=== PATIENT | male | born 1975 | race Caucasian/White ===

== ENCOUNTER 2018-03-01 15:30 | Inpatient (IN) | payer BC ==
[~2018-03-01] VITALS: Ht 190.5 cm; Wt 150.2 kg
[2018-03-01 16:14] LABS: BASOPHILS % (AUTO) 0.9 % (0.0-5.0); EOSINOPHILS % (AUTO) 2.8 % (0.0-8.0); HEMATOCRIT 48.2 % (42-54); LYMPHOCYTES % (AUTO) 29.1 % (21.0-51.0); MEAN CORPUSCULAR HEMOGLOBIN 31.3 pg (27.0-33.0); MEAN CORPUSCULAR HGB CONC 34.7 g/dL (32.0-36.0); MEAN CORPUSCULAR VOLUME 90.2 fL (79-99); MONOCYTES % (AUTO) 8.8 % (3.0-13.0); NEUTROPHILS % (AUTO) 58.4 % (40.0-77.0); PLATELET COUNT (AUTO) 149 K/uL (130-400); RED BLOOD CELL COUNT(AUTO) 5.34 MIL/uL (4.50-6.20); RED CELL DISTRIBUTION WIDTH 13.4 % (11.0-15.5); WHITE BLOOD COUNT (AUTO) 5.6 K/uL (4.8-10.8)
[2018-03-01 16:15] VITALS: BP 147/81
[2018-03-01 16:16] LABS: APPEARANCE,URINE Clear (CLEAR); BILIRUBIN,URINE Negative (NEGATIVE); COLOR,URINE Yellow (YELLOW); GLUCOSE, URINE (UA) TRACE mg/dL (NEGATIVE); KETONES,URINE Negative (NEGATIVE); LEUKOCYTE ESTERASE ,URINE Negative (NEGATIVE); NITRATE,URINE Negative (NEGATIVE); OCCULT BLOOD,URINE Negative (NEGATIVE); PH,URINE 6.5 (5.0-8.0); PROTEIN,URINE Negative (NEGATIVE); UROBILINOGEN,URINE 0.2 mg/dL (0.2-1.0)
[2018-03-01 16:26] LABS: INR 1.07 (0.85-1.15); PARTIAL THROMBOPLASTIN TIME 29.2 SEC (26.3-35.5); PROTHROMBIN TIME 11.2 SEC (9.6-11.6)
[2018-03-01 16:30] LABS: BACTERIA,URINE Rare /HPF (None Seen); RBC,URINE 0-1 /HPF (0-1); SQUAMOUS EPITHELIAL CELL,UR Rare /HPF (0-2); WBC,URINE 0-1 /HPF (0-1)
[2018-03-01] MEDS ORDERED: LISI1TAB9 PO (17:07)
[2018-03-01] MEDS ORDERED: TESTOSTERONE IM (17:07)
[2018-03-01] MEDS ORDERED: METF500T6 PO (17:07)
[2018-03-05] VITALS (20 sets, daily range): BP systolic 106–143; BP diastolic 45–81
[2018-03-05] MEDS: CLINDAMYCIN 900 MG/D5% WATER 50 ML IV SCH ×2 (07:00→10:16)
[2018-03-05] MEDS ORDERED: SODIUM CHLORIDE 0.9% 1000ML 1,000 ML IV ONE (08:04)
[2018-03-05] MEDS ORDERED: CEFAZOLIN SODIUM 1 GM VIAL ONE (08:25)
[2018-03-05] MEDS ORDERED: BUPIVACAINE/PF 0.25% 30ML VIAL IJ ONE (08:25)
[2018-03-05] MEDS ORDERED: TRANEXAMIC ACID 1000MG/10ML IV ONE (08:25)
[2018-03-05] MEDS ORDERED: EPINEPHRINE 1 MG/ML AMPULE ONE (08:25)
[2018-03-05] MEDS ORDERED: CELECOXIB 200 MG CAP ONE (08:27)
[2018-03-05] MEDS ORDERED: ACETAMINOPHEN EXTRA STRENGTH 500 MG TABLET ONE (08:27)
[2018-03-05] MEDS ORDERED: KETOROLAC TROMETHAMINE 15MG/ML ONE (08:27)
[2018-03-05] MEDS ORDERED: OXYCODONE HCL 10 MG TAB.SR.12H PO ONE (08:28)
[2018-03-05] MEDS ORDERED: CLINDAMYCIN PHOSPHATE 150 MG/ML 6ML VIAL ONE (08:47)
[2018-03-05] MEDS ORDERED: MIDAZOLAM HCL 1 MG/ML 2ML VIAL ONE (09:45)
[2018-03-05] MEDS ORDERED: FENTANYL CITRATE PF 50 MCG/1 ML 5ML AMP IV ONE (09:45)
[2018-03-05] MEDS ORDERED: PROPOFOL 10 MG/ML 20ML VIAL IV ONE ×2 (09:45→12:34)
[2018-03-05] MEDS ORDERED: GLYCOPYRROLATE 0.2 MG/ML 5 ML VIAL ONE ×3 (09:54→10:20)
[2018-03-05] MEDS ORDERED: NEOSTIGMINE 5MG/5ML SYR IV ONE (09:54)
[2018-03-05] MEDS ORDERED: ROPIVACAINE 0.5% 5MG/ML 30ML IJ ONE (09:54)
[2018-03-05] MEDS ORDERED: SUCCINYLCHOLINE CHLORIDE 20 MG/ML 10 ML VIAL ONE (09:55)
[2018-03-05] MEDS ORDERED: ROCURONIUM BROMIDE 10MG/1ML 5ML VL ONE (10:12)
[2018-03-05] MEDS ORDERED: ONDANSETRON HCL MDV 20ML 2 MG/ML VIAL ONE (10:12)
[2018-03-05] MEDS ORDERED: LIDOCAINE PF 2% 5ML ABBOJECT ONE (10:12)
[2018-03-05] MEDS ORDERED: NEOSTIGMINE METHYLSULFATE 1MG/ML IV ONE (10:12)
[2018-03-05] MEDS ORDERED: CLINDAMYCIN PHOSPHATE 150 MG/ML 6ML VIAL IJ ONE (10:33)
[2018-03-05] MEDS ORDERED: FENTANYL CITRATE PF 50 MCG/1 ML 2ML VIAL ONE ×2 (12:18→12:31)
[2018-03-05] MEDS ORDERED: LIDOCAINE HCL-MPF 1% 2ML VIAL IVP PRN (12:30)
[2018-03-05] MEDS ORDERED: OXYCODONE HCL 5 MG TAB PO PRN (12:30)
[2018-03-05] MEDS ORDERED: FERROUS FUMARATE 324 MG TABLET PO PRN (12:30)
[2018-03-05] MEDS ORDERED: CALCIUM CARBONATE 500 MG TABLET PO PRN (12:30)
[2018-03-05] MEDS ORDERED: POTASSIUM CHLORIDE 20MEQ/100ML 100 ML IV PRN (12:30)
[2018-03-05] MEDS ORDERED: TRAMADOL HCL 50 MG TABLET PO PRN (12:30)
[2018-03-05] MEDS: ACETAMINOPHEN EXTRA STRENGTH 500 MG TABLET PO SCH ×2 (12:30→21:32)
[2018-03-05] MEDS ORDERED: TEMAZEPAM 15 MG CAPSULE PO PRN (12:30)
[2018-03-05] MEDS ORDERED: POTASSIUM CHLORIDE 10% ELIXIR 20 MEQ/15 ML UDCUP PO PRN (12:30)
[2018-03-05] MEDS ORDERED: DiphenhydrAMINE HCL 50 MG/ML VIAL IVP PRN (12:30)
[2018-03-05] MEDS ORDERED: ONDANSETRON HCL 4 MG/2 ML VIAL IVP PRN (12:30)
[2018-03-05] MEDS ORDERED: MEPERIDINE-PF 50 MG/ML SYG ONE ×2 (13:02→13:20)
[2018-03-05] MEDS ORDERED: PROMETHAZINE HCL 25 MG/ML 1ML AMPULE IM ONE (13:02)
[2018-03-05] MEDS: SODIUM CHLORIDE 0.9% 1000ML 1,000 ML IV SCH ×2 (14:06→22:48)
[2018-03-05] MEDS: KETOROLAC TROMETHAMINE 15MG/ML IV PRN (14:52)
[2018-03-05] MEDS: INSULIN HUMULIN R 100 UNIT/ML 3ML SQ SCH ×2 (16:30→21:37)
[2018-03-05] MEDS: CLINDAMYCIN 900 MG/D5% WATER 50 ML IVPB SCH (17:16)
[2018-03-05] MEDS: OXYCODONE HCL 5 MG TAB PO PRN ×2 (17:16→22:48)
[2018-03-05] MEDS: PREGABALIN 25 MG CAP PO SCH (21:29)
[2018-03-05] MEDS: CELECOXIB 200 MG CAP PO SCH (21:29)
[2018-03-05] MEDS: APIXABAN 2.5 MG TABLET PO SCH (21:32)
[2018-03-05] MEDS: FAMOTIDINE 20MG TAB 20 MG TAB PO SCH (21:33)
[2018-03-06] VITALS: BP 119/72
[2018-03-06] MEDS: CLINDAMYCIN 900 MG/D5% WATER 50 ML IVPB SCH (01:49)
[2018-03-06] MEDS: KETOROLAC TROMETHAMINE 15MG/ML IV PRN ×2 (02:29→11:45)
[2018-03-06 04:00] VITALS: BP 110/70
[2018-03-06] MEDS: ACETAMINOPHEN EXTRA STRENGTH 500 MG TABLET PO SCH ×2 (04:32→12:24)
[2018-03-06 05:34] LABS: HEMATOCRIT 38.4 % (42-54); MEAN CORPUSCULAR HGB CONC 34.8 g/dL (32.0-36.0); MEAN CORPUSCULAR VOLUME 91.7 fL (79-99); PLATELET COUNT (AUTO) 124 K/uL (130-400); RED BLOOD CELL COUNT(AUTO) 4.18 MIL/uL (4.50-6.20); RED CELL DISTRIBUTION WIDTH 13.4 % (11.0-15.5); WHITE BLOOD COUNT (AUTO) 8.2 K/uL (4.8-10.8)
[2018-03-06] MEDS: INSULIN HUMULIN R 100 UNIT/ML 3ML SQ SCH ×3 (05:56→16:09)
[2018-03-06 06:02] LABS: CREATININE 1.1 mg/dL (0.5-1.5); POTASSIUM 3.6 mmol/L (3.5-5.1)
[2018-03-06] MEDS: POTASSIUM CHLORIDE 20 MEQ ERTAB PO PRN ×2 (06:32→08:31)
[2018-03-06] MEDS ORDERED: PHARMACY COMMUNICATION MISC SCH (07:30)
[2018-03-06] MEDS ORDERED: METFORMIN HCL 500 MG TABLET PO SCH ×2 (07:30→16:30)
[2018-03-06 07:55] VITALS: BP 120/60
[2018-03-06] MEDS: CELECOXIB 200 MG CAP PO SCH (08:29)
[2018-03-06] MEDS: FAMOTIDINE 20MG TAB 20 MG TAB PO SCH (08:29)
[2018-03-06] MEDS: OXYCODONE HCL 5 MG TAB PO PRN ×3 (08:30→16:38)
[2018-03-06] MEDS: PREGABALIN 25 MG CAP PO SCH (08:30)
[2018-03-06] MEDS: APIXABAN 2.5 MG TABLET PO SCH (08:30)
[2018-03-06] MEDS ORDERED: HYDROCHLOROTHIAZIDE 25 MG TABLET PO SCH (09:00)
[2018-03-06] MEDS ORDERED: TAMSULOSIN HCL 0.4 MG CAP.ER.24H PO SCH (09:00)
[2018-03-06] MEDS ORDERED: POLYETHYLENE GLYCOL 3350 17 GM POWD.PACK PO SCH (09:00)
[2018-03-06] MEDS ORDERED: LISINOPRIL 10 MG TABLET PO SCH (09:00)
[2018-03-06 11:12] VITALS: BP 140/79
[2018-03-06 15:59] VITALS: BP 138/68
[2018-03-08] MEDS ORDERED: BISACODYL 10 MG SUPP.RECT RC PRN (12:30)
[2018-03-19] MEDS ORDERED: TESTOSTERONE 1 MG IM SCH (09:00)
== END 2018-03-06 19:00 | DRG 470 ==
LOC: EDSTATUS 03-02 15:30 → DAHIP 03-05 07:29 → 4AH 03-05 13:52
PROVIDERS: ADMIT Orthopaedic Surgery; ATTEND Orthopaedic Surgery
PROC: 0SRD0J9 Replacement of Left Knee Joint with Synthetic Substitute, Cemented, Open Approach (ICD-10-PCS; principal; 2018-03-05 09:47)
DX: M17.32 Unilateral post-traumatic osteoarthritis, left knee (principal); E11.9 Type 2 diabetes mellitus without complications; G89.29 Other chronic pain; I10 Essential (primary) hypertension; Z79.84 Long term (current) use of oral hypoglycemic drugs; Z79.899 Other long term (current) drug therapy; Z86.718 Personal history of other venous thrombosis and embolism; Z83.3 Family history of diabetes mellitus; Z82.49 Family history of ischemic heart disease and other diseases of the circulatory system; Z80.9 Family history of malignant neoplasm, unspecified; Z88.8 Allergy status to other drugs, medicaments and biological substances
CPT/HCPCS: 36415; 80048; 81001; 82948; 85025; 85027; 85610; 85730; 88305; 88311; 96374; J0171; J0330; J0690; J1815; J1885; J2001; J2175; J2250; J2550; J2704; J2710; J2795; J3010; J3490; J7030

== ENCOUNTER 2018-12-16 01:41 | Emergency (ER) | payer BC ==
[~2018-12-16 01:41] MED LIST: LISI1TAB9 PO; METF-444 PO; TESTOSTERONE IM
[2018-12-16] MEDS ORDERED: ONDANSETRON HCL 4 MG/2 ML VIAL ONE (02:30)
[2018-12-16] MEDS ORDERED: MORPHINE SULFATE 2 MG/ML 1ML SYG ONE (02:31)
[2018-12-16 02:36] LABS: BASOPHILS % (AUTO) 0.5 % (0.0-5.0); EOSINOPHILS % (AUTO) 2.5 % (0.0-8.0); HEMATOCRIT 37.6 % (42-54); LYMPHOCYTES % (AUTO) 11.7 % (21.0-51.0); MEAN CORPUSCULAR HEMOGLOBIN 29.6 pg (27.0-33.0); MEAN CORPUSCULAR HGB CONC 34.2 g/dL (32.0-36.0); MEAN CORPUSCULAR VOLUME 86.5 fL (79-99); MONOCYTES % (AUTO) 8.5 % (3.0-13.0); NEUTROPHILS % (AUTO) 76.8 % (40.0-77.0); PLATELET COUNT (AUTO) 254 K/uL (130-400); RED BLOOD CELL COUNT(AUTO) 4.34 MIL/uL (4.50-6.20); RED CELL DISTRIBUTION WIDTH 14.5 % (11.0-15.5); WHITE BLOOD COUNT (AUTO) 9.6 K/uL (4.8-10.8)
[2018-12-16 02:46] LABS: CREATININE 1.1 mg/dL (0.5-1.5); POTASSIUM 3.7 mmol/L (3.5-5.1)
[2018-12-16 02:51] LABS: ALBUMIN 3.3 g/dL (3.5-5.0); BILIRUBIN,TOTAL 0.4 mg/dL (0.2-1.0); TOTAL PROTEIN, SERUM 7.1 g/dL (6.0-8.3)
[2018-12-16 05:00] LABS: BF LYMPHOCYTE 6 %; BF MONOCYTE 5 %
[2018-12-16 05:09] LABS: APPEARANCE BODY FLUID BLOODY (CLEAR); COLOR,BODY FLUID RED (LT YELLOW); SPECIMENTYPE,BODY FLUID ASPIRATE; TOTAL VOLUME,BODY FLUID 6000 mL
[2018-12-16 05:10] LABS: BODY FLUID WBC 10600 /cu. mm.
[2018-12-16] MEDS ORDERED: HYDROCODONE/ACETAMINOPHEN 10/325 MG TAB ONE (05:17)
[2018-12-16 05:24] LABS: BODY FLUID RBC 380000 /cu. mm.
[2018-12-18] MEDS ORDERED: LISI1TAB9 PO (13:59)
[2018-12-18] MEDS ORDERED: TESTOSTERON IM (13:59)
[2018-12-18] MEDS ORDERED: METF-444 PO ×2 (13:59)
[2018-12-19] MEDS ORDERED: HYDR-4060 PO (11:33)
[2018-12-21] MEDS ORDERED: HYDR-4457 PO (16:04)
[2018-12-21] MEDS ORDERED: ASPI-1012 PO (16:04)
== END 2018-12-16 05:31 | disposition home or self-care (01) ==
LOC: EDH 01:41
DX: M25.462 Effusion, left knee (principal); E11.9 Type 2 diabetes mellitus without complications; I10 Essential (primary) hypertension; Z88.1 Allergy status to other antibiotic agents
CPT/HCPCS: 20610; 36415; 73562; 80053; 85025; 85651; 86140; 87071; 87077; 87186; 87205; 89051; 96374; 96375; 99285; J2405

== ENCOUNTER 2018-12-19 10:23 | Inpatient (IN) | payer BC | END 2018-12-21 19:11 | disposition home health service (06) | LOC: DAHIP 10:23 → 4AH 22:18 | PROC: 0SPD0JZ Removal of Synthetic Substitute from Left Knee Joint, Open Approach (ICD-10-PCS; principal; 2018-12-19 18:45) | PROC: 0SHD08Z Insertion of Spacer into Left Knee Joint, Open Approach (ICD-10-PCS; 2018-12-19 18:45) | DX: T84.54XA Infection and inflammatory reaction due to internal left knee prosthesis, initial encounter (principal); E66.01 Morbid (severe) obesity due to excess calories; E11.9 Type 2 diabetes mellitus without complications; I10 Essential (primary) hypertension; Z72.0 Tobacco use ==

== ENCOUNTER 2019-01-25 15:00 | Inpatient (IN) | payer BC ==
[~2019-01-25] VITALS: Ht 188 cm; Wt 144.7 kg
[2019-01-25 10:34] LABS: BASOPHILS % (AUTO) 1.1 % (0.0-5.0); EOSINOPHILS % (AUTO) 5.9 % (0.0-8.0); HEMATOCRIT 43.2 % (42-54); LYMPHOCYTES % (AUTO) 25.2 % (21.0-51.0); MEAN CORPUSCULAR HEMOGLOBIN 28.7 pg (27.0-33.0); MEAN CORPUSCULAR HGB CONC 33.1 g/dL (32.0-36.0); MEAN CORPUSCULAR VOLUME 86.7 fL (79-99); MONOCYTES % (AUTO) 7.1 % (3.0-13.0); NEUTROPHILS % (AUTO) 60.7 % (40.0-77.0); PLATELET COUNT (AUTO) 214 K/uL (130-400); RED BLOOD CELL COUNT(AUTO) 4.98 MIL/uL (4.50-6.20); RED CELL DISTRIBUTION WIDTH 16.8 % (11.0-15.5); WHITE BLOOD COUNT (AUTO) 5.6 K/uL (4.8-10.8)
[2019-01-25 10:36] VITALS: BP 156/76
[2019-01-25 10:37] LABS: APPEARANCE,URINE Clear (CLEAR); BILIRUBIN,URINE Negative (NEGATIVE); COLOR,URINE Yellow (YELLOW); GLUCOSE, URINE (UA) Negative (NEGATIVE); KETONES,URINE Negative (NEGATIVE); LEUKOCYTE ESTERASE ,URINE Negative (NEGATIVE); NITRATE,URINE Negative (NEGATIVE); OCCULT BLOOD,URINE Negative (NEGATIVE); PROTEIN,URINE Negative (NEGATIVE); UROBILINOGEN,URINE 0.2 mg/dL (0.2-1.0)
[2019-01-25 10:46] LABS: CREATININE 0.9 mg/dL (0.5-1.5); POTASSIUM 4.2 mmol/L (3.5-5.1)
[2019-01-25 10:48] LABS: INR 1.09 (0.85-1.15); PARTIAL THROMBOPLASTIN TIME 32.3 SEC (26.3-35.5); PROTHROMBIN TIME 11.4 SEC (9.6-11.6)
[~2019-01-25 15:00] MED LIST changes: +TESTOSTERON IM; -TESTOSTERONE IM
[2019-01-28] VITALS (22 sets, daily range): BP systolic 144–185; BP diastolic 78–102
[2019-01-28] MEDS ORDERED: SODIUM CHLORIDE 0.9% 1000ML 1,000 ML IV ONE (11:00)
[2019-01-28] MEDS ORDERED: METOCLOPRAMIDE 10 MG/2 ML VIAL ONE (11:29)
[2019-01-28] MEDS ORDERED: ACETAMINOPHEN EXTRA STRENGTH 500 MG TABLET ONE (11:29)
[2019-01-28] MEDS ORDERED: KETOROLAC TROMETHAMINE 15MG/ML ONE (11:30)
[2019-01-28] MEDS ORDERED: CELECOXIB 200 MG CAP ONE (11:30)
[2019-01-28] MEDS ORDERED: OXYCODONE HCL 10 MG TAB.SR.12H PO ONE (11:30)
[2019-01-28] MEDS ORDERED: VANCOMYCIN 2 GM in SODIUM CHLORIDE 0.9% 500ML 500 ML IV SCH (12:00)
--- NOTE | 2019-01-28 12:00 | NUR ---
PICC LINE Hafsa Tapia RN changed picc line dressing
[2019-01-28] MEDS ORDERED: LIDOCAINE PF 2% 5ML ABBOJECT ONE (13:44)
[2019-01-28] MEDS ORDERED: PROPOFOL 10 MG/ML 20ML VIAL IV ONE (13:44)
[2019-01-28] MEDS ORDERED: MIDAZOLAM HCL 1 MG/ML 2ML VIAL ONE (13:45)
[2019-01-28] MEDS ORDERED: ROCURONIUM 10MG/1ML SYR 10 MG/ML ML ONE ×2 (13:45→14:24)
[2019-01-28] MEDS ORDERED: ONDANSETRON HCL 4 MG/2 ML VIAL ONE (13:45)
[2019-01-28] MEDS ORDERED: ROPIVACAINE 0.5% 5MG/ML 30ML IJ ONE (14:11)
[2019-01-28] MEDS: TRANEXAMIC ACID 1000MG/10ML IV ONE ×2 (14:20→19:15)
[2019-01-28] MEDS ORDERED: FENTANYL CITRATE PF 50 MCG/1 ML 2ML VIAL ONE ×3 (14:47→18:15)
[2019-01-28] MEDS ORDERED: VANCOMYCIN HCL 1 GM VIAL ONE ×3 (15:40→17:05)
[2019-01-28] MEDS ORDERED: HYDRALAZINE HCL 20 MG/ML VIAL ONE (15:50)
[2019-01-28] MEDS ORDERED: ESMOLOL HCL 10 MG/ML 10 ML VIAL ONE ×2 (16:19→16:33)
[2019-01-28] MEDS ORDERED: METOPROLOL TARTRATE 1 MG/ML 5ML VIAL IV ONE (16:33)
[2019-01-28] MEDS ORDERED: FENTANYL CITRATE PF 50 MCG/1 ML 5ML AMP IV ONE ×2 (16:41→17:12)
[2019-01-28] MEDS: VANCOMYCIN HCL 1 GM VIAL ONE ×2 (16:57→17:00)
[2019-01-28] MEDS: METFORMIN HCL 500 MG TABLET PO SCH (17:00)
[2019-01-28] MEDS ORDERED: GLYCOPYRROLATE 1 MG/5 ML SYRINGE ONE (17:29)
[2019-01-28] MEDS ORDERED: NEOSTIGMINE 5MG/5ML SYR IV ONE (17:32)
[2019-01-28] MEDS ORDERED: LIDOCAINE HCL-MPF 1% 5ML AMP IJ ONE (17:37)
[2019-01-28] MEDS ORDERED: KETOROLAC TROMETHAMINE 15MG/ML IV PRN (17:45)
[2019-01-28] MEDS ORDERED: TEMAZEPAM 15 MG CAPSULE PO PRN (17:45)
[2019-01-28] MEDS ORDERED: OXYCODONE HCL 5 MG TAB PO PRN (17:45)
[2019-01-28] MEDS ORDERED: FERROUS FUMARATE 324 MG TABLET PO PRN (17:45)
[2019-01-28] MEDS: ACETAMINOPHEN EXTRA STRENGTH 500 MG TABLET PO SCH (17:45)
[2019-01-28] MEDS ORDERED: POTASSIUM CHLORIDE 20 MEQ ERTAB PO PRN (17:45)
[2019-01-28] MEDS ORDERED: POTASSIUM CHLORIDE 20MEQ/100ML 100 ML IV PRN (17:45)
[2019-01-28] MEDS ORDERED: POTASSIUM CHLORIDE 10% ELIXIR 20 MEQ/15 ML UDCUP PO PRN (17:45)
[2019-01-28] MEDS ORDERED: CALCIUM CARBONATE 500 MG TABLET PO PRN (17:45)
[2019-01-28] MEDS ORDERED: DiphenhydrAMINE HCL 50 MG/ML VIAL IVP PRN (17:45)
[2019-01-28] MEDS ORDERED: LIDOCAINE HCL-MPF 1% 2ML VIAL IVP PRN (17:45)
[2019-01-28] MEDS ORDERED: ONDANSETRON HCL 4 MG/2 ML VIAL IVP PRN (17:45)
[2019-01-28 18:51] LABS: SPECIMENTYPE,BODY FLUID SYNOVIAL
[2019-01-28 18:52] LABS: APPEARANCE BODY FLUID BLOODY (CLEAR); BODY FLUID WBC 34 /cu. mm.; COLOR,BODY FLUID ORANGE (LT YELLOW); TOTAL VOLUME,BODY FLUID 20 mL
[2019-01-28] MEDS ORDERED: LABETALOL 20 MG/4 ML DISP.SYRIN IV ONE (19:08)
[2019-01-28] MEDS ORDERED: MEPERIDINE-PF 25 MG/ML SYG ONE ×2 (19:23→19:33)
--- NOTE | 2019-01-28 20:40 | NUR ---
POST OP PATIENT ARRIVED FROM PACU AAOX3 IN BED WITH O2 AT 3 LPM VIA NC. DRESSING TO LEFT KNEE DRY AND INTACT SCD'S PLACE ON BOTH LOWER LEGS. PICC LINE TO LEFT ARM IN PLACE PATENT. PATIENT COMPLAINS OF PAIN TO RIGHT BUTTOCKS AND NUMBNESS AND HEAVINESS TO LEFT ARM FROM ELBOW TO FINGER TIPS. DR VAZQUEZ MADE AWARE OF PATIENT COMPLAINS ORDER TO MONITOR OVER NIGHT. PATIENT WITH NO WOUND OR VISIBLE SIGNS OF TRAUMA TO RIGHT BUTTOCKS ONLY REDNESS FROM PATIENT SCRATCHING. PATIENT'S LEFT ARM WITH GOOD PINK COLOR,CAP REFILL, MOVEMENT, AND RADIAL PULSE. WILL MONITOR PATIENT THROUGH OUT THE NIGHT. FAMILY AT SIDE ALL QUESTIONS ABD CONCERNS ADDRESSED.
[2019-01-28 20:51] LABS: BF LYMPHOCYTE 34 %; BF MONOCYTE 1 %
[2019-01-28] MEDS: ASPIRIN 325 MG TABLET PO SCH (20:59)
[2019-01-28] MEDS: FAMOTIDINE 20MG TAB 20 MG TAB PO SCH (20:59)
[2019-01-28] MEDS: CELECOXIB 200 MG CAP PO SCH (20:59)
[2019-01-28] MEDS: INSULIN HUMULIN R 100 UNIT/ML 3ML SQ SCH (21:00)
[2019-01-28] MEDS: OXYCODONE HCL 5 MG TAB PO PRN (21:00)
[2019-01-28] MEDS: PREGABALIN 25 MG CAP PO SCH (21:00)
[2019-01-28] MEDS: SODIUM CHLORIDE 0.9% 1000ML 1,000 ML IV SCH (21:19)
[2019-01-28] MEDS: CEFAZOLIN 3GM /D5W 100ML 100 ML IV SCH (22:45)
[2019-01-28] MEDS ORDERED: CEFAZOLIN SODIUM 1 GM VIAL ONE (23:23)
[2019-01-29] VITALS (7 sets, daily range): BP systolic 106–142; BP diastolic 51–78
[2019-01-29] MEDS: ACETAMINOPHEN EXTRA STRENGTH 500 MG TABLET PO SCH ×3 (00:59→17:55)
[2019-01-29] MEDS: OXYCODONE HCL 5 MG TAB PO PRN ×5 (01:00→23:55)
--- NOTE | 2019-01-29 01:41 | NUR ---
NUMBNESS PATIENT CONTINUES WITH NUMBNESS TO LEFT ARM FROM ELBOW TO FINGER TIPS. HE STATES HIS LEFT LEG IF IMPROVING BUT NOT HIS ARM AND STATES NOW HE FEEL POOR CONTROL OF HIS ARM BUT DOES HAVE GOOD PULSES AND CAP REFILL AND ARM IS WARM TO TOUCH. WILL CONTINUE TO MONITOR.
[2019-01-29] MEDS: SODIUM CHLORIDE 0.9% 1000ML 1,000 ML IV SCH ×2 (02:54→13:39)
[2019-01-29 04:26] LABS: HEMATOCRIT 32.7 % (42-54); MEAN CORPUSCULAR HEMOGLOBIN 29.4 pg (27.0-33.0); MEAN CORPUSCULAR HGB CONC 33.8 g/dL (32.0-36.0); MEAN CORPUSCULAR VOLUME 87.1 fL (79-99); PLATELET COUNT (AUTO) 172 K/uL (130-400); RED BLOOD CELL COUNT(AUTO) 3.76 MIL/uL (4.50-6.20); RED CELL DISTRIBUTION WIDTH 16.7 % (11.0-15.5); WHITE BLOOD COUNT (AUTO) 6.5 K/uL (4.8-10.8)
[2019-01-29 04:50] LABS: CREATININE 1.2 mg/dL (0.5-1.5)
[2019-01-29] MEDS: INSULIN HUMULIN R 100 UNIT/ML 3ML SQ SCH ×4 (05:19→21:00)
[2019-01-29] MEDS: CEFAZOLIN 3GM /D5W 100ML 100 ML IV SCH (06:45)
[2019-01-29] MEDS ORDERED: HYDROMORPHONE PCA 10 MG/50 ML 50 ML IV PRN (08:30)
[2019-01-29] MEDS: POLYETHYLENE GLYCOL 3350 17 GM POWD.PACK PO SCH (08:31)
[2019-01-29] MEDS: PREGABALIN 25 MG CAP PO SCH ×2 (08:31→19:31)
[2019-01-29] MEDS: CELECOXIB 200 MG CAP PO SCH ×2 (08:31→19:31)
[2019-01-29] MEDS: HYDROCHLOROTHIAZIDE 25 MG TABLET PO SCH (08:32)
[2019-01-29] MEDS: LISINOPRIL 10 MG TABLET PO SCH (08:32)
[2019-01-29] MEDS: FAMOTIDINE 20MG TAB 20 MG TAB PO SCH ×2 (08:32→19:31)
[2019-01-29] MEDS: METFORMIN HCL 500 MG TABLET PO SCH ×2 (08:33→16:58)
[2019-01-29] MEDS: ASPIRIN 325 MG TABLET PO SCH ×2 (08:33→19:31)
[2019-01-29] MEDS: TAMSULOSIN HCL 0.4 MG CAP.ER.24H PO SCH (08:33)
--- NOTE | 2019-01-29 08:45 | NUR ---
TO CT SCAN PATIENT TRANSPORTED TO CT SCAN FOR CT OF HEAD WITHOUT CONTRAST FOR C/O NUMBNESS AND HEAVINESS TO LEFT ARM.
--- NOTE | 2019-01-29 10:30 | NUR ---
INFECTIOUS DISEASE DR. ESTRADA IN TO SEE PATIENT. NEW ORDERS RECEIVED.
--- NOTE | 2019-01-29 10:31 | NUR ---
DCP CM met with pt discussed dc plans. Pt is independent prior to admission, lives at home w/spouse. Has a walker, bedside commode, stated [facility] serviced pt prior to and agreeable w/the same HH on dc. NELIA signed. Faxed order and clinicals to [facility], spoke to Tashia made aware of referral. Pt feels safe to go back home, spouse able to assist with transportation and needs. DC plan to home w/HH. CM to cont to follow up. Addendum: 01/29/19 at 1034 by BARRY WILLIAM LVN CM Amended: Links added.
--- NOTE | 2019-01-29 11:04 | NUR ---
CM Note: [facility] approval and acceptance Spoke to Tashia espinosa/YESSICA MENENDEZ, pt has approval and acceptance. Primary nurse aware. CM to cont to follow up.
--- NOTE | 2019-01-29 11:20 | NUR ---
Orders to D/C PICC line in chart. Upon entering room, pt immediately offered c/o numbness to left arm since time of surgery. Left upper arm area surrounding PICC insertion site noted to be red, pt c/o is tender. Notified primary nurse Minor who stated that MD's are aware of numbness and orders for imaging, etc have already been given to address it; he also stated that Dr. Ellison is aware of redness and is part of the reason why orders for removal were written. Pt placed in supine position with left arm extended to side. Tape and dressing removed, then catheter removed. No resistance felt. Tip noted to be smooth and intact, does not appear to be jagged or torn. Insertion site with very small amt bleeding noted. Pressure held with sterile 4x4's for 5 minutes. Hemostasis achieved. Dressed with sterile 4x4's and op site. Instructed pt no straining or heavy lifting with arm. Keep dressing clean and intact for 72 hours. Pt voiced understanding. Primary nurse Minor updated.
[2019-01-29] MEDS ORDERED: PHARMACY COMMUNICATION MISC SCH (12:00)
[2019-01-29] MEDS: CEFTRIAXONE SODIUM 2 GM VIAL IVP SCH (12:15)
--- NOTE | 2019-01-29 13:50 | NUR ---
PT NOTE: PATIENT AMBULATED 150FT CGAX1 /C L HAND GRASPING WALKER ENOUGH TO ADVANCE IT FORWARD WITH THE HELP OF CHETNA. WEAKNESS NOTED TO L UE HAND DURING AMBULATION BUT PATIENT STILL ABLE TO AMBULATE WITH STANDARD WALKER. Addendum: 01/29/19 at 1612 by BIJU COX PT Amended: Links added.
[2019-01-30] MEDS: ACETAMINOPHEN EXTRA STRENGTH 500 MG TABLET PO SCH ×3 (01:33→18:22)
[2019-01-30 04:00] VITALS: BP 150/89
[2019-01-30] MEDS: OXYCODONE HCL 5 MG TAB PO PRN ×3 (04:38→20:12)
--- NOTE | 2019-01-30 05:00 | NUR ---
LEFT ARM PATIENT STATES HE NOW HAS SENSATION TO MOST OF HIS LEFT ARM ONLY HIS THIRD TO FIFTH DIGIT ARE NUMB. WILL PASS IT ON IN REPORT.
[2019-01-30] MEDS: INSULIN HUMULIN R 100 UNIT/ML 3ML SQ SCH ×4 (05:21→20:27)
[2019-01-30 07:48] VITALS: BP 123/67
[2019-01-30] MEDS: TAMSULOSIN HCL 0.4 MG CAP.ER.24H PO SCH (09:00)
[2019-01-30] MEDS: POLYETHYLENE GLYCOL 3350 17 GM POWD.PACK PO SCH (09:06)
[2019-01-30] MEDS: FAMOTIDINE 20MG TAB 20 MG TAB PO SCH ×2 (09:07→19:53)
[2019-01-30] MEDS: ASPIRIN 325 MG TABLET PO SCH ×2 (09:07→19:52)
[2019-01-30] MEDS: METFORMIN HCL 500 MG TABLET PO SCH ×2 (09:07→18:21)
[2019-01-30] MEDS: CELECOXIB 200 MG CAP PO SCH ×2 (09:07→19:52)
[2019-01-30] MEDS: PREGABALIN 25 MG CAP PO SCH ×2 (09:07→19:53)
[2019-01-30] MEDS: HYDROCHLOROTHIAZIDE 25 MG TABLET PO SCH (09:08)
[2019-01-30] MEDS: LISINOPRIL 10 MG TABLET PO SCH (09:08)
--- NOTE | 2019-01-30 09:35 | NUR ---
PT NOTE: PATIENT AMBULATED 150FT MIN/CGAX1 WITH IMPROVED FUNCTION OF LUE HAND NOTED. PATIENT WAS ABLE TO GRASP AD WITH IMPROVED SERVICE SUPERINTENDENT STRENGTH TODAY VS YESTERDAY. PATIENT C/O SLIGHT NUMBNESS ON THUMB AND INDEX FINGER BUT OVERALL REPORTS HE FEELS MUCH BETTER. Addendum: 01/30/19 at 1556 by BIJU COX PT Amended: Links added.
--- NOTE | 2019-01-30 11:30 | NUR ---
DR. VAZQUEZ STATED HE HAD ALREADY TALKED TO DR. HOYT AND DR. HOYT HAD REVIEWED ALL OF THE PT'S IMAGES DR. HOYT WILL NOT BE SEING PT IN THE OFFICE Addendum: 01/30/19 at 1954 by SKY PARRA RN IN THE HOSPITAL.
[2019-01-30 11:39] VITALS: BP 137/70
[2019-01-30] MEDS ORDERED: ASPI-1012 PO (12:21)
[2019-01-30] MEDS ORDERED: HYDR-4457 PO (12:21)
[2019-01-30] MEDS: CEFTRIAXONE SODIUM 2 GM VIAL IVP SCH (14:49)
[2019-01-30] MEDS: TRAMADOL HCL 50 MG TABLET PO PRN (14:58)
[2019-01-30] MEDS: HYDROCORTISONE 1% 28.35 GM CREAM TP SCH (15:00)
--- NOTE | 2019-01-30 16:00 | NUR ---
DR. VAZQUEZ ROUNDED ON PT DUE TO SURGICAL INCISION HAVING A MODERATED AMOUNT OF SEROSANGUINEOUS DRAINAGE AND EDEMATOUS , PT WILL STAY FOR MONITORING . DRESSING CHANGED WITH BETADINE, 4X4 AND KNEE IMMOBILIZER PT TOLERATED PROCEDURE WELL
[2019-01-30 16:32] VITALS: BP 126/72
[2019-01-30 20:12] VITALS: BP 140/76
[2019-01-30 23:59] VITALS: BP 135/84
[2019-01-31] MEDS: OXYCODONE HCL 5 MG TAB PO PRN (00:07)
[2019-01-31] MEDS: HYDROCORTISONE 1% 28.35 GM CREAM TP SCH ×2 (00:07→09:39)
[2019-01-31] MEDS: ACETAMINOPHEN EXTRA STRENGTH 500 MG TABLET PO SCH ×2 (01:45→09:43)
[2019-01-31 04:00] VITALS: BP 130/68
[2019-01-31] MEDS: INSULIN HUMULIN R 100 UNIT/ML 3ML SQ SCH ×2 (06:15→11:30)
[2019-01-31 08:41] VITALS: BP 136/73
[2019-01-31] MEDS: PREGABALIN 25 MG CAP PO SCH (09:37)
[2019-01-31] MEDS: FAMOTIDINE 20MG TAB 20 MG TAB PO SCH (09:37)
[2019-01-31] MEDS: ASPIRIN 325 MG TABLET PO SCH (09:37)
[2019-01-31] MEDS: POLYETHYLENE GLYCOL 3350 17 GM POWD.PACK PO SCH (09:37)
[2019-01-31] MEDS: CELECOXIB 200 MG CAP PO SCH (09:37)
[2019-01-31] MEDS: HYDROCHLOROTHIAZIDE 25 MG TABLET PO SCH (09:37)
[2019-01-31] MEDS: METFORMIN HCL 500 MG TABLET PO SCH (09:38)
[2019-01-31] MEDS: LISINOPRIL 10 MG TABLET PO SCH (09:38)
[2019-01-31] MEDS: TAMSULOSIN HCL 0.4 MG CAP.ER.24H PO SCH (09:38)
[2019-01-31] MEDS: TRAMADOL HCL 50 MG TABLET PO PRN (09:44)
[2019-01-31] MEDS: CEFTRIAXONE SODIUM 2 GM VIAL IVP SCH (11:30)
[2019-01-31 11:56] VITALS: BP 137/81
--- NOTE | 2019-01-31 12:30 | NUR ---
DISCHARGE DISCHARGE TEACHING DONE WITH PATIENT, VERBALIZED UNDERSTANDING. NO NOTED SOB OR DISTRESS. NEW MEDICATION ADMINISTRATION TEACHING DONE WITH PATIENT, VERBALIZED UNDERSTANDING. PT AWARE OF NEED TO ATTEND DR. VAZQUEZ APPOINTMENT WELL DR. ESTRADA AND DR. YOUNG IF NEEDED. DRESSING CHANGED, INCISION IS DRY AND INTACT, IMMOBILIZER IN PLACE. DRESSING TEACHING DONE WITH PATIENT USING TEACHBACK METHOD, VERBALIZED UNDERSTANDING. IV REMOVED, CATH TIP INTACT. REPORT GIVEN TO [facility]. PENDING TO BE TRANSFERRED OUT VIA PRIVATE VEHICLE.
[2019-01-31] MEDS ORDERED: BISACODYL 10 MG SUPP.RECT RC PRN (17:45)
[2019-02-03] MEDS ORDERED: TESTOSTERON IM SCH (09:00)
== END 2019-01-31 12:46 | disposition home health service (06) | DRG 467 ==
LOC: DAHIP 01-28 09:33 → 4AH 01-28 20:40
PROVIDERS: ADMIT Orthopaedic Surgery; ATTEND Orthopaedic Surgery
PROC: 0SPD08Z Removal of Spacer from Left Knee Joint, Open Approach (ICD-10-PCS; 2019-01-28)
PROC: 3E1U38Z Irrigation of Joints using Irrigating Substance, Percutaneous Approach (ICD-10-PCS; 2019-01-28)
PROC: 0SPD0JZ Removal of Synthetic Substitute from Left Knee Joint, Open Approach (ICD-10-PCS; principal; 2019-01-28 14:10)
PROC: 0SRD0J9 Replacement of Left Knee Joint with Synthetic Substitute, Cemented, Open Approach (ICD-10-PCS; 2019-01-28 14:10)
DX: T84.54XA Infection and inflammatory reaction due to internal left knee prosthesis, initial encounter (principal); Z68.41 Body mass index [BMI] 40.0-44.9, adult; N39.0 Urinary tract infection, site not specified; G47.33 Obstructive sleep apnea (adult) (pediatric); E11.9 Type 2 diabetes mellitus without complications; E66.01 Morbid (severe) obesity due to excess calories; I10 Essential (primary) hypertension; B95.5 Unspecified streptococcus as the cause of diseases classified elsewhere; Y83.1 Surgical operation with implant of artificial internal device as the cause of abnormal reaction of the patient, or of later complication, without mention of misadventure at the time of the procedure; Y92.89 Other specified places as the place of occurrence of the external cause; Z86.718 Personal history of other venous thrombosis and embolism; Z88.8 Allergy status to other drugs, medicaments and biological substances; Z83.3 Family history of diabetes mellitus; Z82.49 Family history of ischemic heart disease and other diseases of the circulatory system
CPT/HCPCS: 36415; 70450; 72125; 80048; 81003; 82948; 85025; 85027; 85610; 85730; 87070; 87076; 87205; 88304; 88311; 89051; 93880; 97039; A4218; G0378; J0360; J0690; J0696; J1885; J2001; J2175; J2250; J2405; J2704; J2710; J2765; J2795; J3010; J3370; J3490; J7030; J7040